=== PATIENT | male | born 1985 ===

== ENCOUNTER 2018-12-19 23:52 | Observation (INO) | payer SELFPAY ==
[2018-12-19 23:54] VITALS: BMI 24.2
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
[2018-12-20] MEDS ORDERED: Morphine 2 mg/ml ISec IVP STA ×2 (01:05→02:01)
[2018-12-20] MEDS ORDERED: TDAP Vaccine 0.5 mL Syr IM ONE (01:05)
[2018-12-20 01:36] LABS: INR 1.07; PROTHROMBIN TIME 11.9 SECONDS (9.4-12.5)
[2018-12-20 01:38] LABS: BASO # 0.08 K/mm3 (0.0-2.0); BASO % 0.5 % (0.0-3.0); EOS # 0.3 (0.0-0.7); EOS % 1.5 % (1.5-5.0); HEMOGLOBIN 14.4 g/dL (14.0-18.0); LYMPH # 3.7 (1.2-3.4); LYMPH % 22.4 % (22.0-35.0); MEAN CELL VOLUME 85.7 fl (80.0-105.0); MEAN CORPUSCULAR HEMOGLOBIN 29.9 pg (25.0-35.0); MEAN PLATELET VOLUME 10.3 fl (7.0-11.0); MONO # 0.7 (0.1-0.6); MONO % 4.1 % (1.0-6.0); RBC 4.81 10^6/uL (3.5-6.1); WHITE BLOOD COUNT 16.5 10^3/uL (4.5-11.0)
[2018-12-20 01:42] LABS: ALB/GLOB RATIO 1.2 (1.1-1.8); ALBUMIN 4.1 g/dL (3.0-4.8); ALT/SGPT 59 U/L (7-56); AST/SGOT 45 U/L (17-59); BLOOD UREA NITROGEN 22 mg/dL (7-21); CALCIUM 9.5 mg/dL (8.4-10.5); GFR NON-AFRICAN AMERICAN > 60
[2018-12-20] MEDS ORDERED: Lidocaine PF 2% (5 ml) Inj (For Cardiac Arrhy) ONE (04:01)
[2018-12-20] MEDS ORDERED: Ketamine 50 mg/ml Inj (10 ml) IV STA (04:03)
[2018-12-20] MEDS ORDERED: Bacitracin 500 Units/gm Oint Foilpak UD ONE (05:14)
[2018-12-20] MEDS ORDERED: ceFAZolin 1 gm in NS 1 GM/100 ML BAG IVPB STA (05:14)
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
--- NOTE | 2018-12-20 08:48 | RAD ---
Date of service: 12/20/2018 PROCEDURE: Radiographs of the right elbow. HISTORY: post reduction film COMPARISON: No prior. TECHNIQUE: 3 views obtained. FINDINGS: BONES: Normal. No fracture. JOINTS: Normal. No osteoarthritis. SOFT TISSUES: Normal. JOINT EFFUSION: None. OTHER FINDINGS: None. IMPRESSION: Successful reduction of elbow dislocation
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
--- NOTE | 2018-12-20 09:14 | CT ---
Date of service: 12/20/2018 PROCEDURE: CT HEAD WITHOUT CONTRAST. HISTORY: headache COMPARISON: None available. TECHNIQUE: Axial computed tomography images were obtained through the head/brain without intravenous contrast. Radiation dose: Total exam DLP = 937.87 mGy-cm. This CT exam was performed using one or more of the following dose reduction techniques: Automated exposure control, adjustment of the mA and/or kV according to patient size, and/or use of iterative reconstruction technique. FINDINGS: HEMORRHAGE: No intracranial hemorrhage. BRAIN: No mass effect or edema. No atrophy or chronic microvascular ischemic changes. VENTRICLES: Unremarkable. No hydrocephalus. CALVARIUM: Unremarkable. PARANASAL SINUSES: Unremarkable as visualized. No significant inflammatory changes. MASTOID AIR CELLS: Unremarkable as visualized. No inflammatory changes. OTHER FINDINGS: The report concurs with the preliminary [facility] report IMPRESSION: No acute intracranial findings
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
--- NOTE | 2018-12-20 09:20 | CT ---
Date of service: 12/20/2018 PROCEDURE: CT Cervical Spine without contrast HISTORY: neck pain COMPARISON: None available. TECHNIQUE: Axial computed tomography images were obtained of the cervical spine without the use of intravenous contrast. Coronal and sagittal reformatted images were created and reviewed. Radiation dose: Total exam DLP = 656.73 mGy-cm. This CT exam was performed using one or more of the following dose reduction techniques: Automated exposure control, adjustment of the mA and/or kV according to patient size, and/or use of iterative reconstruction technique. FINDINGS: VERTEBRAE: No fracture. Normal alignment. No destructive bony lesion. DISCS/SPINAL CANAL/NEURAL FORAMINA: No significant central canal or neural foraminal stenosis. Discs heights are grossly preserved. PARASPINAL SOFT TISSUES: Unremarkable. OTHER FINDINGS: The report concurs with the preliminary [facility] report IMPRESSION: Unremarkable CT of the cervical spine.
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
[2018-12-20] MEDS: Morphine 2 mg/ml ISec IVP PRN (21:03)
[2018-12-21 07:38] LABS: BASO # 0.05 K/mm3 (0.0-2.0); BASO % 0.5 % (0.0-3.0); EOS # 0.3 (0.0-0.7); EOS % 2.3 % (1.5-5.0); HEMOGLOBIN 14.4 g/dL (14.0-18.0); LYMPH # 2.7 (1.2-3.4); LYMPH % 24.7 % (22.0-35.0); MEAN CELL VOLUME 86.6 fl (80.0-105.0); MEAN CORPUSCULAR HEMOGLOBIN 29.7 pg (25.0-35.0); MEAN CORPUSCULAR HGB CONC 34.3 g/dl (31.0-37.0); MEAN PLATELET VOLUME 10.6 fl (7.0-11.0); MONO # 0.9 (0.1-0.6); MONO % 7.8 % (1.0-6.0); RBC 4.85 10^6/uL (3.5-6.1); RED CELL DISTRIBUTION WIDTH 12.2 % (11.5-14.5); WHITE BLOOD COUNT 10.9 10^3/uL (4.5-11.0)
[2018-12-21 07:53] VITALS: TEMP 98.4; O2SAT 97
[2018-12-21 08:30] LABS: ALB/GLOB RATIO 1.3 (1.1-1.8); ALBUMIN 4.2 g/dL (3.0-4.8); ALT/SGPT 54 U/L (7-56); AST/SGOT 52 U/L (17-59); BLOOD UREA NITROGEN 17 mg/dL (7-21); CALCIUM 9.3 mg/dL (8.4-10.5); GFR NON-AFRICAN AMERICAN > 60
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
[2018-12-21] MEDS: Morphine 2 mg/ml ISec IVP PRN (11:53)
[2018-12-21] MEDS ORDERED: Influenza Vaccine 60 mcg/0.5 mL SYR (4YR UP) IM ONE (13:45)
[2018-12-21 14:35] VITALS: BP 120/70; PULSE 85; RESP 18
== END 2018-12-21 16:49 | disposition home or self-care (01) ==
LOC: ED 23:52 → ERH 12-20 05:33 → 5RNO 12-20 07:20
PROVIDERS: ADMIT Internal Medicine; ATTEND Hospitalist
DX: S53.104A Unspecified dislocation of right ulnohumeral joint, initial encounter (principal); S01.111A Laceration without foreign body of right eyelid and periocular area, initial encounter; S06.0X0A Concussion without loss of consciousness, initial encounter; S02.2XXA Fracture of nasal bones, initial encounter for closed fracture; S51.011A Laceration without foreign body of right elbow, initial encounter; F17.200 Nicotine dependence, unspecified, uncomplicated; Y09 Assault by unspecified means; Z23 Encounter for immunization
CPT/HCPCS: 12011; 24600; 36415; 70450; 70486; 71260; 72125; 73030; 73080; 73090; 74177; 80053; 85025; 85610; 85730; 86850; 86900; 87040; 90471; 90674; 90715; 96372; 96374; 96375; 96376; 99284; G0008; G0378; G0480; J0690; J1644; J2270; Q9967